=== PATIENT | female | born 1945 ===

== ENCOUNTER 2023-07-04 07:38 | Outpatient (CLI) | payer MEDICARE, OTHER, SELFPAY ==
[2023-07-04] VITALS (15 sets, daily range): BP systolic 128–166; BP diastolic 44–135; PULSE 36–80; RESP 12–16; TEMP 36.3–36.6; O2SAT 62–100; BMI 24.6
--- NOTE | 2023-07-04 | DI.US.S_ITS ---
PROCEDURE: US BIOPSY LIVER Ultrasound-guided liver biopsy with sedation analgesia. 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 Written informed consent was obtained and placed in the chart. Continuous EKG and hemodynamic monitoring was started by trained personnel. Real-time sonography was utilized to choose the site for percutaneous hepatic biopsy. The skin was prepped and draped in the usual sterile fashion. 1% lidocaine was infiltrated down to the hepatic capsule. A coaxial needle was then advanced into the liver under direct sonographic visualization. A biopsy apparatus was then utilized, and core biopsies were obtained. The needle was then withdrawn; a bandage and overlying weight were applied to the biopsy site. COMPARISON: None. FINDINGS: Biopsy site(s): Inferior left hepatic lobe Needle: Bard 20 gauge biopsy needle set. Number of passes: For Medications: 1% lidocaine for local anaesthesia. IV Versed and Fentanyl for conscious sedation. Complications: None. IMPRESSION: Successful ultrasound-guided liver biopsy, with pathology results pending. Dictated by: Leo Fountain M.D. on 07/04/2023 at 11:24 Approved by: Leo Fountain M.D. on 07/04/2023 at 11:27
--- NOTE | 2023-07-04 | PATH_ITS ---
[facility] Accession Number: [id number] No. of containers..01 Tissue . 01 Material submitted: . liver - LEFT LIVER INFERIOR MASS . 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 Please see comment. [facility] 07/06/2023 1534 Local . 01 Comment: This adenocarcinoma has an intestinal phenotype, which is non-specific. The primary site for this adenocarcinoma cannot be determined by the immunohistochemistry panel, however, the differential diagnosis includes a primary tumor of the upper gastrointestinal tract and a lung adenocarcinoma with an enteric phenotype. Please correlate these findings with clinical and imaging studies. . As part of ongoing quality control director, this case is also reviewed by Dr. Christine Urban, who concurs with the given interpretation. . To convey results, Dr. Ramirez called the office and left a voicemail message for Dr. Arguello and the care team on 07/06/2023 at approximately 1:06 p.m. . 01 Electronically signed: . Theresa Ramirez MD, Pathologist NPI- [id number] . 01 Gross description: . LEFT LIVER INFERIOR MASS: Received in formalin are 4 fragment(s) of briceno, soft tissue measuring 0.8 x 0.1 x 0.1 cm to 1.5 x 0.1 x 0.1 cm submitted entirely in 1 cassette(s) /GERARDO 07/04/2023 2331 Local . 01 Microscopic: . Immunostains for the following were performed on block A1, to evaluate the cells of interest. The control stains showed appropriate reactivity. . . CK7: Strongly positive. CK20: Rare positive. Napsin A: Negative. TTF-1: Negative. Arginase 1: Negative. CDX-2: Strongly positive. Villin: Strongly positive. HOMERO-3: Negative. PAX-8: Negative. . . The neoplastic cells are strongly positive for CK7, CDX-2, and villin, with rare positivity of CK20. These findings support an interpretation of adenocarcinoma with an intestinal phenotype. These findings are non-specific, however, the differential diagnosis includes metastatic carcinoma from the upper gastrointestinal region and lung adenocarcinoma with an enteric phenotype. . Organ specific markers are negative (negative for Napsin A, TTF-1, PAX-8, HOMERO-3, and arginase 1), which does not necessarily support a pulmonary, Mullerian, breast, urothelial, or liver origin. . * This test was developed and its performance characteristics determined by [employer]. It has not been cleared or approved by the [place]. Food and Drug Administration. The FDA has determined that such clearance or approval is not necessary. This test is used for clinical purposes. It should not be regarded as investigational or for research. . 01 Pathologist provided ICD-10: C78.00, C78.7 . 01 CPT . 843955, [id number], O15011 Performed at: 01 [facility] [address] [place] [address], [place], [place] [id number] MD Keith Garcia MD Phone: [phone]
[2023-07-04 08:33] LABS: Platelet Count 267 X10^3/uL (150-400)
[2023-07-04 08:39] LABS: Prothrombin Time 11.9 SECONDS (9.4-12.5)
[2023-07-04 08:41] LABS: PTT Partial Thromboplastin Tim 25 SECONDS (25.1-36.5)
[2023-07-04 09:18] LABS: Hematocrit 30.8 % (36-46)
[2023-07-04] MEDS: MIDAZOLAM 2 MG/2 ML VIAL IV (09:44)
[2023-07-04 12:14] LABS: Hematocrit 28.1 % (36-46)
--- NOTE | 2023-07-04 12:44 | SUR.PHASEII ---
MD Leo Fountain notified of H&H. Okay to discharge patient home now.
== END 2023-07-04 13:15 | disposition home or self-care (01) ==
PROVIDERS: Radiology Diagnostic Radiology; PCP Nurse Practitioner Family; Referring Provider Family Medicine; Visit Provider Family Medicine
PROC: BF25ZZZ Computerized Tomography (CT Scan) of Liver (ICD-10-PCS; CPT 47000; principal; 2023-07-04 09:00)
DX: C22.9 Malignant neoplasm of liver, not specified as primary or secondary (principal)
CPT/HCPCS: 36415; 47000; 76942; 82962; 85014; 85049; 85610; 85730; J2250